=== PATIENT | female | born 1995 ===

== ENCOUNTER 2018-05-12 15:47 | Emergency (ER) | payer OTHER ==
[2018-05-12 15:47] VITALS: BMI 24.5
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
[2018-05-12 17:18] VITALS: BP 156/122; PULSE 83; RESP 16; TEMP 98.7; O2SAT 98
== END 2018-05-12 17:30 | disposition home or self-care (01) ==
LOC: C.ER 15:47
DX: S00.83XA Contusion of other part of head, initial encounter (principal); S56.912A Strain of unspecified muscles, fascia and tendons at forearm level, left arm, initial encounter; V49.9XXA Car occupant (driver) (passenger) injured in unspecified traffic accident, initial encounter